=== PATIENT | male | born 1965 | race Caucasian/White ===

== ENCOUNTER 2023-03-29 17:49 | Emergency (ER) | payer OTHER, SELFPAY ==
[2023-03-29] VITALS (10 sets, daily range): BP systolic 115–141; BP diastolic 67–84; PULSE 73–80; RESP 16–18; TEMP 37.3; O2SAT 93–97; BMI 34.2
--- NOTE | 2023-03-29 17:56 | DI.RAD.S_ITS ---
PROCEDURE: XR HAND LT MIN 3V INDICATIONS: dog bite left hand TECHNIQUE: 3 views of the hand(s) acquired. COMPARISON: None. FINDINGS: Bones: No fractures or dislocations. Carpal bones are normally aligned. No suspicious bony lesions. Soft tissues: No suspicious soft tissue calcifications. IMPRESSION: No visualized acute fracture or dislocation. However, if clinical concern and/or pain persist, short interval imaging followup in 7-10 days is recommended, as occult injury cannot be definitively excluded. Dictated by: Kesha Pendleton M.D. on 03/29/2023 at 18:44 Approved by: Kesha Pendleton M.D. on 03/29/2023 at 18:45
--- NOTE | 2023-03-29 18:28 | ED_ITS ---
HPI - Animal Bite <Kinsey Rosario PA-C - Last Filed: 03/29/23 20:57> General Chief Complaint: Animal Bite Stated Complaint: Dog fight, right hand injury Time Seen by Provider: 03/29/23 18:05 Source: patient Mode of arrival: Ambulatory History of Present Illness HPI narrative: 57-year-old male presents to the ER with his with concern for laceration injury dog bite to his left hand. Patient states that he was in the backyard his 2 dogs were fighting and he was trying to separate them. One was upside down one was on top he reached in to try to turn 1 over and get them apart and his collie reached up and bit into his hand he states that her canines were lodged in the top of his hand when he pulled it away and it caused a big flap avulsion in the top of his hand. He states it is not particularly painful but notes it does bleed quite a bit when there isn't a bandage on it. States there was no significant bleeding or spurting blood when it happened. He feels he has been able to move things normally. Only previous injury to this hand was a table saw laceration that did not require surgery to the pad of his left thumb. He denies numbness or tingling or any other symptoms or injuries. Related Data Previous Rx's Medication Instructions Recorded amoxicillin 875 mg-potassium 1 tab PO Q12H dog bite prophylaxis 03/29/23 clavulanate 125 mg tablet 7 days #14 tabs Allergies Allergy/AdvReac Type Severity Reaction Status Date / Time No Known Drug Allergies Allergy Verified 03/29/23 17:50 Review of Systems <Kinsey Rosario PA-C - Last Filed: 03/29/23 20:57> Review of Systems Narrative: See HPI Patient History <Kinsey Rosario PA-C - Last Filed: 03/29/23 20:57> Social History Smoking Status: Never smoker Smoking Status: Never smoker alcohol intake frequency: holidays/special occasions only Substance Use Type: does not use Exam <Kinsey Rosario PA-C - Last Filed: 03/29/23 20:57> Narrative Exam Narrative: GENERAL: [57] year old patient appears stated age. Well-developed patient, in mild distress. HEAD: Atraumatic. Normocephalic. EYES: Pupils equal round and reactive. Extraocular motions intact. No scleral icterus. No injection or drainage. ENT: Nose without bleeding, purulent drainage. Throat without erythema, tonsillar hypertrophy or exudate. Airway patent. NECK: Trachea midline. CARDIOVASCULAR: Regular rate and rhythm without murmurs, gallops, or rubs. RESPIRATORY: Clear to auscultation. Breath sounds equal bilaterally. No wheezes, rales, or rhonchi. EXTREMITIES: There is a T-shaped laceration avulsion on the patient's left dorsum of the hand 4 cm x 1.5 cm. There is associated generalized swelling of the dorsum of the left hand. Bleeding is controlled with pressure dressing. 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 Sensation intact capillary refill less than 2 seconds all digits. There is a superficial open puncture wound present on the lateral aspect of the left index finger between the MCP and PIP. No other edema or joint tenderness noted. NEURO: AOx3. SKIN: No rash or erythema of visible areas Initial Vital Signs Initial Vital Signs: Vital Signs Temperature 99.1 F 03/29/23 17:50 Pulse Rate 73 03/29/23 17:50 Respiratory Rate 16 03/29/23 17:50 Blood Pressure 134/84 03/29/23 17:50 Pulse Oximetry 97 03/29/23 17:50 Oxygen Delivery Method Room Air 03/29/23 17:50 <Anselmo Ferguson DO - Last Filed: 03/29/23 21:04> Initial Vital Signs Initial Vital Signs: Vital Signs Temperature 99.1 F 03/29/23 17:50 Pulse Rate 73 03/29/23 17:50 Respiratory Rate 16 03/29/23 17:50 Blood Pressure 134/84 03/29/23 17:50 Pulse Oximetry 97 03/29/23 17:50 Oxygen Delivery Method Room Air 03/29/23 17:50 Procedures <Kinsey Rosario PA-C - Last Filed: 03/29/23 20:57> Laceration Repair Laceration 1: Time of procedure: 19:25 Site: hand Side (If applicable): left (Dorsum) Description: flap (T shaped 4cm long edge x 1.5 cm) Depth: involves muscle layer Amount of anesthesia used (mL): 4 Pre-repair: wound explored, irrigated extensively, deep structures intact and cleansed with chlorhexadine Skin layer closed with: nylon Skin layer suture size: 5-0 Number of sutures: 12 Technique: simple, interrupted Subcutaneous layer closed with: vicryl Subcutaneous layer suture size: 5-0 Number of sutures: 2 Technique: simple, interrupted Course <Kinsey Rosario PA-C - Last Filed: 03/29/23 20:57> Course Course Narrative: After numbing and washout requested Dr. Ferguson also examine the patient's wound. We confirmed that the extensor tendon of the middle finger is intact and moving normally it is visible at the base of the wound. Given persistent bleeding and deep wound we will be closing the wound even though it is from a dog bite. And will initiate antibiotics today in the emergency department. 1911 Orders Ordered: ED Orders 03/29/23 17:56 XR hand LT min 3V Stat Discontinued Medications Amoxicillin/Clavulanate Potassium (Amoxicillin/Clav 875/125 Mg) 1 tab PO NOW ONE Stop: 03/29/23 20:20 Last Admin: 03/29/23 20:24 Dose: 1 tab Documented By: NORRIS Diphtheria/Tetanus/Acell Pertussis (Tet,Diph,Pertuss(Acell),Vac/Pf 0.5 Ml Syringe) 0.5 ml IM .ONCE ONE Stop: 03/29/23 17:57 Last Admin: 03/29/23 18:30 Dose: 0.5 ml Documented By: YADIRA Lidocaine HCl (Lidocaine 2% Inj Mdv 20ml) 10 ml SUBCUT NOW ONE Stop: 03/29/23 18:28 Last Admin: 03/29/23 18:43 Dose: 10 ml Documented By: YADIRA Oxycodone/Acetaminophen (Oxycodone/Apap 5/325 Prepack) 1 bottle MISC SEEINSTR ONE Stop: 03/29/23 20:31 Last Admin: 03/29/23 20:34 Dose: 1 bottle Documented By: NORRIS Vital Signs Vital signs: Vital Signs - 8 hr 03/29/23 17:50 03/29/23 18:50 03/29/23 18:52 Temperature 99.1 F Pulse Rate 73 80 Respiratory Rate 16 Blood Pressure 134/84 130/69 Pulse Oximetry 97 93 Oxygen Delivery Method Room Air 03/29/23 18:52 03/29/23 19:00 03/29/23 19:00 Temperature Pulse Rate 80 77 Respiratory Rate Blood Pressure 115/67 Pulse Oximetry 93 95 Oxygen Delivery Method 03/29/23 19:15 03/29/23 19:15 03/29/23 19:30 Temperature Pulse Rate 78 Respiratory Rate Blood Pressure 128/67 141/75 H Pulse Oximetry 95 Oxygen Delivery Method 03/29/23 19:30 03/29/23 19:45 03/29/23 19:45 Temperature Pulse Rate 79 76 Respiratory Rate 18 Blood Pressure 131/77 Pulse Oximetry 95 95 Oxygen Delivery Method Room Air 03/29/23 20:00 03/29/23 20:00 03/29/23 20:15 Temperature Pulse Rate 79 74 Respiratory Rate Blood Pressure 128/75 Pulse Oximetry 95 93 Oxygen Delivery Method Room Air 03/29/23 20:15 03/29/23 20:30 03/29/23 20:30 Temperature Pulse Rate 73 Respiratory Rate Blood Pressure 131/76 134/79 Pulse Oximetry 95 Oxygen Delivery Method Room Air <Anselmo Ferguson DO - Last Filed: 03/29/23 21:04> Orders Ordered: ED Orders 03/29/23 17:56 XR hand LT min 3V Stat Discontinued Medications Amoxicillin/Clavulanate Potassium (Amoxicillin/Clav 875/125 Mg) 1 tab PO NOW ONE Stop: 03/29/23 20:20 Last Admin: 03/29/23 20:24 Dose: 1 tab Documented By: NORRIS Diphtheria/Tetanus/Acell Pertussis (Tet,Diph,Pertuss(Acell),Vac/Pf 0.5 Ml Syringe) 0.5 ml IM .ONCE ONE Stop: 03/29/23 17:57 Last Admin: 03/29/23 18:30 Dose: 0.5 ml Documented By: YADIRA Lidocaine HCl (Lidocaine 2% Inj Mdv 20ml) 10 ml SUBCUT NOW ONE Stop: 03/29/23 18:28 Last Admin: 03/29/23 18:43 Dose: 10 ml Documented By: YADIRA Oxycodone/Acetaminophen (Oxycodone/Apap 5/325 Prepack) 1 bottle MISC SEEINSTR ONE Stop: 03/29/23 20:31 Last Admin: 03/29/23 20:34 Dose: 1 bottle Documented By: NORRIS Vital Signs Vital signs: Vital Signs - 8 hr 03/29/23 17:50 03/29/23 18:50 03/29/23 18:52 Temperature 99.1 F Pulse Rate 73 80 Respiratory Rate 16 Blood Pressure 134/84 130/69 Pulse Oximetry 97 93 Oxygen Delivery Method Room Air 03/29/23 18:52 03/29/23 19:00 03/29/23 19:00 Temperature Pulse Rate 80 77 Respiratory Rate Blood Pressure 115/67 Pulse Oximetry 93 95 Oxygen Delivery Method 03/29/23 19:15 03/29/23 19:15 03/29/23 19:30 Temperature Pulse Rate 78 Respiratory Rate Blood Pressure 128/67 141/75 H Pulse Oximetry 95 Oxygen Delivery Method 03/29/23 19:30 03/29/23 19:45 03/29/23 19:45 Temperature Pulse Rate 79 76 Respiratory Rate 18 Blood Pressure 131/77 Pulse Oximetry 95 95 Oxygen Delivery Method Room Air 03/29/23 20:00 03/29/23 20:00 03/29/23 20:15 Temperature Pulse Rate 79 74 Respiratory Rate Blood Pressure 128/75 Pulse Oximetry 95 93 Oxygen Delivery Method Room Air 03/29/23 20:15 03/29/23 20:30 03/29/23 20:30 Temperature Pulse Rate 73 Respiratory Rate Blood Pressure 131/76 134/79 Pulse Oximetry 95 Oxygen Delivery Method Room Air MDM - Animal Bite <Kinsey Rosario PA-C - Last Filed: 03/29/23 20:57> Differential Diagnosis Differential diagnosis: Likely bite by animal, dog bite and other (Laceration) Medical Records Attestation: I reviewed the patient's medical records. Imaging Data Extremity x-ray #1: My Impression: Agree with Radiology interpretation Radiologist's Impression: [address] [address] XRay Report Signed Patient: Eriberto Ronquillo MR#: [id number] : 1965 Acct:[id number] Age/Sex: 57 / M Date of Service: 03/29/23 Loc: ED Accession Number: [id number] Procedure: XR hand LT min 3V Ordering Provider: Isis Vargas MD PROCEDURE: XR HAND LT MIN 3V INDICATIONS: dog bite left hand TECHNIQUE: 3 views of the hand(s) acquired. COMPARISON: None. FINDINGS: Bones: No fractures or dislocations. Carpal bones are normally aligned. No suspicious bony lesions. Soft tissues: No suspicious soft tissue calcifications. IMPRESSION: No visualized acute fracture or dislocation. However, if clinical concern and/or pain persist, short interval imaging followup in 7-10 days is recommended, as occult injury cannot be definitively excluded. Dictated by: Kesha Pendleton M.D. on 03/29/2023 at 18:44 Approved by: Kesha Pendleton M.D. on 03/29/2023 at 18:45 Treatment and disposition Shared decision making:: Shared decision-making was used with the patient and his regarding plan for suture repair and antibiotics MDM Narrative Medical decision making narrative: This is a 57-year-old male presents with concern for laceration to the dorsum of his left hand sustained by his own dog who is fully vaccinated. His 2 dogs were fighting they are both fully vaccinated and he attempted to separate them resulting in his laceration/avulsion. After washout attending physician examined the wound and we found no evidence of tendon damage, muscles intact and patient's function neuromotor sensory is intact. Wound repaired as above and procedures. Pressure dressing applied. Prepack of Percocet for pain for the next 24 hours as well as initial dose of Augmentin in the emergency department today before departing and prescription for 7 day course of Augmentin for prophylaxis against infection. Patient is advised to follow up closely with his primary care provider monitor for signs of infection. Return precautions provided, follow-up plan discussed, all questions answered. Discharge Plan Departure Patient Disposition: Home Clinical Impression: Dog bite Qualifiers: Encounter type: initial encounter Qualified Code(s): W54.0XXA - Bitten by dog, initial encounter Laceration of hand Qualifiers: Encounter type: initial encounter Foreign body presence: without foreign body Laterality: left Qualified Code(s): S61.412A - Laceration without foreign body of left hand, initial encounter Instructions: DI for Dog Bite Activity Restrictions/Additional Instructions: *You have been diagnosed with [ laceration from dog bite to hand] *What to do: *Please continue to take your regular medications as directed. [ 1] New medication prescriptions sent to your pharmacy: [Augmentin] [ ] New medication written as a paper prescription [ ] No new medications given *Please follow up with your primary care provider in 2-3 days, call for an appointment. Let them know you were seen in the Emergency Department and that we ask that you be seen in follow up. We will electronically transmit a record of today's note if your PCP is in our system. A prescription was sent into [facility] for Augmentin for a 7 day course. Please pick this up in the morning and continue taking it for the full course. We also provided a prepack from the ER with a few doses of stronger pain medicine for you to get you through the night given your significant laceration and wound with repair and pressure dressing placed. Please follow-up closely with your primary care provider. You can have your stitches removed in 8-10 days 12 at the most. Please keep the area clean, monitor for signs of infection including redness heat swelling increasing pain, drainage from the wound that is thick yellow or greenish appearing, new or worsening pain with moving her fingers or any other concerns--if these arise please make sure you get re-evaluated immediately however the prophylactic antibiotics he has been placed on should hopefully stave off infection. *If you do not have a primary care provider please contact the [facility] Resource line at [phone]. They will ask some questions about your medical history and help get you set up with a doctor in the community. *Return to Emergency Department if you should have any new, worsening or concerning symptoms, such as [fever greater than 101 F, shaking chills, worsening pain, persistent vomiting or other bothersome symptoms] . Prescriptions: New amoxicillin-pot clavulanate 875-125 mg tablet 1 tab PO Q12H 7 Days Qty: 14 0RF Stand Alone Forms: Patient Portal/API ED Sign-out <Anselmo Ferguson, - Last Filed: 03/29/23 21:04> Cosign ED Attending Rex Attestation: I did evaluate the patient with the APC. There does not to be any extensor tendon involvement. I agree with the above history and physical.
[2023-03-29] MEDS: TET,DIPH,PERTUSS(ACELL),VAC/PF 0.5 ML SYRINGE IM (18:30)
[2023-03-29] MEDS: LIDOCAINE 2% INJ MDV 20ML 10 ML SUBCUT (18:43)
[2023-03-29] MEDS: AMOXICILLIN/CLAV 875/125 MG 1 TAB PO (20:24)
[2023-03-29] MEDS: OXYCODONE/APAP 5/325 PREPACK 1 BOTTLE MISC (20:34)
--- NOTE | 2023-03-29 20:41 | PC.NURSE ---
Placed pressure dressing using telfa followed by 4x4 gauze. Wrapped coban around hand. Gave instruction to loosen coban if pt startes feeling numb, tingling and decreased cap refill, pt stated understanding.
== END 2023-03-29 20:44 | disposition home or self-care (01) ==
PROVIDERS: Emergency Provider Student in an Organized Health Care Education/Training Program
DX: S61.412A Laceration without foreign body of left hand, initial encounter (principal); S61.452A Open bite of left hand, initial encounter; W54.0XXA Bitten by dog, initial encounter; Z23 Encounter for immunization
CPT/HCPCS: 13132; 73130; 90471; 99283; 99284; 90715

== ENCOUNTER 2025-03-15 13:45 | Inpatient (IN) | payer OTHER, SELFPAY ==
[2025-03-15 14:08] VITALS: BP 122/67; PULSE 89; RESP 17; TEMP 36.8; O2SAT 95; BMI 32.5
--- NOTE | 2025-03-15 15:26 | ED.EXTPRO ---
HPI - Extremity Problem General Chief complaint: Extremity Problem,Nontraumatic Stated complaint: SWOLLEN RT KNEE, WIC ON MONDAY, FEVER Time Seen by Provider: 03/15/25 15:26 History of Present Illness HPI Narrative: Patient is a healthy 59-year-old male who presents today with right knee redness. Reports that about 1 week ago he was doing some work at home, about 4 days ago he noticed a small white area on his patellar tendon his squeezed it in the next day his right knee was read. He was seen evaluated at walk-in clinic 2 days ago he was started on Bactrim he has had 3 doses of Bactrim and continues to have fever. He is able to bear weight and to ambulate getting up out of a chair is difficult. He is not diabetic. Related Data Allergies Allergy/AdvReac Type Severity Reaction Status Date / Time No Known Drug Allergies Allergy Verified 03/15/25 14:08 Patient History Social History Smoking Status: Never smoker Smoking Status: Never smoker alcohol intake frequency: holidays/special occasions only Exam Initial Vital Signs Initial Vital Signs: Vital Signs Temperature 98.3 F 03/15/25 14:08 Pulse Rate 89 03/15/25 14:08 Respiratory Rate 17 03/15/25 14:08 Blood Pressure 122/67 03/15/25 14:08 Pulse Oximetry 95 03/15/25 14:08 Oxygen Delivery Method Room Air 03/15/25 14:08 GENERAL: Alert well-appearing 59-year-old male HEENT: Head atraumatic,EOMI, pupils reactive, face symmetric, moist mucous membranes CARDIOVASCULAR: Regular rate and rhythm without murmurs, rubs or gallops. RESPIRATORY: Breath sounds equal bilaterally, no wheezes rales or rhonchi. ABDOMEN: Soft, nontender. Normoactive bowel sounds all 4 quadrants. No guarding or rebound. EXTREMITIES: Normal range of motion, no clubbing or edema. Neurovascularly intact NEUROLOGICAL: Alert and oriented x4.Normal gait and speech. Cranial nerves II through XII grossly intact. SKIN: Right leg erythematous tender over patellar tendon no obvious abscess or fluctuation noncircumferential Procedures Bursa Procedure Side of body: right Site of Procedure: prepatellar bursa XRAY Obtained: none Antisepsis Used: Chlorhexidine Local Anesthetic: lidocaine 1% Amount of anesthesia used (mL): 5 Fluid obtained (mL): 3 Fluid Type: cloudy and purulent Patient Tolerated Procedure: Well and No complications Course Orders Ordered: ED Orders 03/15/25 15:12 CBC Auto Diff [Complete Blood Count AUTO DIFF] Stat CMP [Comprehensive Metabolic Panel] Stat CRP [C-Reactive Protein Quant] Stat ESR [Erythrocyte Sedimentation Rate] Stat Lactate (Lactic Acid) Stat 03/15/25 15:45 Blood Culture Stat 03/15/25 17:55 Body Fluid Culture Stat Cell Count w Diff Body Fluid Stat Discontinued Medications Hydromorphone HCl (Hydromorphone Hcl 0.5 Mg/0.5 Ml Syringe) 0.5 mg IV NOW ONE Stop: 03/15/25 17:57 Last Admin: 03/15/25 18:03 Dose: 0.5 mg Ceftriaxone Sodium 2,000 mg/ (Sodium Chloride) 100 mls @ 200 mls/hr IV NOW ONE Stop: 03/15/25 15:42 Last Infusion: 03/15/25 16:25 Dose: Infused Documented By: Admin: 03/15/25 15:49 Dose: 200 mls/hr Documented By: ISABELLA Vital Signs Vital signs: Vital Signs - 8 hr 03/15/25 14:08 Temperature 98.3 F Pulse Rate 89 Respiratory Rate 17 Blood Pressure 122/67 Pulse Oximetry 95 Oxygen Delivery Method Room Air MDM - Extremity (Nontraumatic) Lab Data 03/15/25 15:12 03/15/25 15:12 Labs: Lab Results 03/15/25 Range/Units 15:12 WBC 17.2 H (4.5-11.0) X10^3/uL RBC 3.72 L (4.5-5.9) X10^6/uL Hgb 12.6 L (13.5-17.5) g/dL Hct 37.9 L (41-53) % MCV 101.9 H (80-100) fL MCH 34.0 (26-34) PG MCHC 33.3 (30-36) % RDW 17.4 H (11.6-14.8) % Plt Count 212 (150-400) X10^3/uL Neut % (Auto) 82.0 H (50-75) % Lymph % (Auto) 10.3 L (25-40) % [place] % (Auto) 6.8 (3-14) % Eos % (Auto) 0.3 L (2-4) % Baso % (Auto) 0.6 (0-2) % Neut # (Auto) 75220 H (9240-4108) /uL Lymph # (Auto) 1800 (7133-1213) /uL [place] # (Auto) 1200 H (0-900) /uL Eos # (Auto) 100 (0-450) /uL Baso # (Auto) 100 (0-100) /uL ESR 81 H (0-15) MM/HR Sodium 134 L (137-145) mmol/L Potassium 4.4 (3.4-5.1) mmol/L Chloride 98 (98-107) mmol/L Carbon Dioxide 25 (22-32) mmol/L BUN 16 (9-20) mg/dL Creatinine 1.13 (0.66-1.25) mg/dL Estimated GFR > 60 (>60) mL/min BUN/Creatinine Ratio 14.2 (6-22) Glucose 180 H (70-99) mg/dL Lactate 1.1 (0.7-2.1) mmol/L Calcium 9.0 (8.4-10.2) mg/dL Total Bilirubin 1.3 (0.2-1.3) mg/dL AST 19 (17-59) IU/L ALT 24 (<50) IU/L Alkaline Phosphatase 69 (38-126) U/L C-Reactive Protein 29.7 H (<1.0) mg/dL Total Protein 8.3 H (6.3-8.2) g/dL Albumin 4.5 (3.5-5.0) g/dL Globulin 3.8 (1.7-4.1) g/dL Albumin/Globulin Ratio 1.2 (1.0-2.8) MDM Narrative Medical decision making narrative: [facility] CC: Right knee pain and redness Complicating co-morbidities: Healthy male Data collected from: and patient Medical records reviewed: Minimal records to review Differential considered: Prepatellar septic bursitis versus septic arthritis versus cellulitis Exam documented above, pertinent findings include: Prepatellar swelling and redness pain to touch able to move knee distal pedal pulse intact Lab Test results independently reviewed as above. Pertinent findings: CBC shows leukocytosis WBC of 17 CMP no electrolyte abnormality no TEJAL creatinine 1.1 glucose 180 Lactate 1 point ESR 81 CRP 29 point Imaging studies independently reviewed: None Consultations: 1800 Dr. Gregory orthopedics agrees to consultation keep NPO after midnight 1802 Dr. Hooks updated patient's symptoms orthopedic recommendation agrees to admission Treatments: I&D prepatellar space, Rocephin Dilaudid Re-evaluations: Patient is requiring more pain medicine Discussion: Patient is a healthy 59-year-old male presenting to day with ongoing right knee infection. This does seem to be pre patellar bursitis. He actually has a normal lactate but elevated WBC ESR and CRP. Fluid from bursa is sent and being cultured blood cultures pending. Discharge Plan Departure Patient Disposition: Admitted As Inpatient Clinical Impression: Septic prepatellar bursitis of right knee Admit Date/Time: 03/15/25 18:21 Admit Provider: Fareed Hooks V
[2025-03-15] MEDS: cefTRIAXone 2,000 MG in SODIUM CHLORIDE 0.9% 100 ML 200 MG IV (15:49)
[2025-03-15 15:50] LABS: Add Manual Diff / Slide Review NO; Hematocrit 37.9 % (41-53); Hemoglobin 12.6 g/dL (13.5-17.5); Lymphocytes Absolute Auto 1800 /uL (1100-4500); Mean Corpuscular HGB Conc 33.3 % (30-36); Mean Corpuscular Hemoglobin 34.0 PG (26-34); Mean Corpuscular Volume 101.9 fL (80-100); Platelet Count 212 X10^3/uL (150-400)
--- NOTE | 2025-03-15 15:51 | PC.NURSE ---
2nd blood cultures obtained
[2025-03-15 15:53] LABS: Lactate (Lactic Acid) 1.1 mmol/L (0.7-2.1)
[2025-03-15 15:56] LABS: Alanine Aminotransferase 24 IU/L (<50); Albumin 4.5 g/dL (3.5-5.0); Albumin Globulin Ratio 1.2 (1.0-2.8); Alkaline Phosphatase 69 U/L (38-126); Blood Urea Nitrogen 16 mg/dL (9-20); Calcium 9.0 mg/dL (8.4-10.2); Carbon Dioxide 25 mmol/L (22-32); Chloride 98 mmol/L (98-107); Estimated Glomerular Filt Rate > 60 mL/min (>60); Globulin 3.8 g/dL (1.7-4.1); Glucose 180 mg/dL (70-99); HEMOLYSIS < 15 (0-50); Potassium 4.4 mmol/L (3.4-5.1); Sodium 134 mmol/L (137-145); Total Protein 8.3 g/dL (6.3-8.2)
[2025-03-15 18:16] LABS: Body Fluid Tot Nucleated Cells 361409 /uL
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
[2025-03-15 18:40] LABS: Body Fluid Clotted? NO CLOTS PRESENT
[2025-03-15 19:05] VITALS: BP 145/88; PULSE 101; RESP 16; TEMP 37.7; O2SAT 95
[2025-03-15 19:14] VITALS: BMI 32.5
--- NOTE | 2025-03-15 20:23 | PM.CN.IH.1 ---
History of Present Illness Consult details Date Patient Seen: 03/15/25 Time Patient Seen: 20:23 Chief complaint: SWOLLEN RT KNEE, WIC ON MONDAY, FEVER Reason for consult: Right leg infection Narrative: Eriberto is a 59-year-old male who presents to the emergency room earlier today with complaints of worsening pain, redness, swelling of the right leg. He began having symptoms several days ago and was seen in an urgent care and started on some Bactrim. His symptoms have progressed following the initiation of antibiotic treatment. He presented to the emergency room earlier today and had a small area of fluctuance that was aspirated by the ER and produced some purulent material. Had extensive erythema of the leg and was admitted for IV antibiotics. He reports pain is limited to the leg. He is able to walk without significant pain in the knee itself. Meds Home Medications and Allergies Home Medications ?Medication ?Instructions ?Recorded ?Confirmed ?Type naproxen sodium 220 mg capsule 220 mg PO BID 03/15/25 03/15/25 History (Aleve) Allergies Allergy/AdvReac Type Severity Reaction Status Date / Time No Known Drug Allergies Allergy Verified 03/15/25 14:08 Review of Systems Review of Systems ROS: Yes All systems reviewed with the patient and are negative except as otherwise documented Musculoskeletal Musculoskeletal: Reports as per HPI Integumentary/Breasts Skin/Breast: Reports as per HPI Exam Vital Signs (past 8 hours): - 03/15/25 14:08 Temperature 98.3 F Pulse Rate 89 Respiratory Rate 17 Blood Pressure 122/67 Pulse Oximetry 95 Oxygen Delivery Method Room Air Oxygen Delivery Method Room Air Narrative Exam Narrative: Right lower extremity has extensive erythema extending from above the knee to the lower portion of the lower leg. I do not appreciate any substantial areas of fluctuance on exam at this time. There is evidence of a puncture from the aspiration just around the level of the patellar tendon laterally. He has full extension through about 45-50 degrees of flexion with minimal discomfort. The knee is without effusion. There is diffuse warmth of the leg in the area of the erythema. Distal motor and sensory exams are intact. Objective Labs 03/15/25 15:12 03/15/25 15:12 Labs: Laboratory Results - last 24 hr 03/15/25 03/15/25 15:12 17:48 WBC 17.2 H RBC 3.72 L Hgb 12.6 L Hct 37.9 L MCV 101.9 H MCH 34.0 MCHC 33.3 RDW 17.4 H Plt Count 212 Neut % (Auto) 82.0 H Lymph % (Auto) 10.3 L [place] % (Auto) 6.8 Eos % (Auto) 0.3 L Baso % (Auto) 0.6 Neut # (Auto) 81134 H Lymph # (Auto) 1800 [place] # (Auto) 1200 H Eos # (Auto) 100 Baso # (Auto) 100 ESR 81 H Sodium 134 L Potassium 4.4 Chloride 98 Carbon Dioxide 25 BUN 16 Creatinine 1.13 Estimated GFR > 60 BUN/Creatinine Ratio 14.2 Glucose 180 H Lactate 1.1 Calcium 9.0 Total Bilirubin 1.3 AST 19 ALT 24 Alkaline Phosphatase 69 C-Reactive Protein 29.7 H Total Protein 8.3 H Albumin 4.5 Globulin 3.8 Albumin/Globulin Ratio 1.2 Fluid Color [place] Fluid Appearance Turbid Fluid RBC 73882 Fld Tot Nucleated Cell [id number] Body Fluid Clot No clots present PFSH Social History household members: spouse Tobacco & Substance Use Smoking Status: Never smoker alcohol intake: current Assessment & Plan Assessment & Plan narrative: Right lower extremity cellulitis with focal area of possible abscess already aspirated. At this time, I do not appreciate a clinical picture of any significant septic arthritis. Additionally the area of fluctuance that was noted by the emergency room staff and aspirated is no longer appreciated. Given the clinical picture, I suspect that he should do well with continued IV antibiotic treatment with broad-spectrum coverage. I do not see a surgical indication at this time. I will continue to follow his progress while in the hospital. Time-Based Coding :: [TOTAL MINUTES] spent with patient and on the chart (including review of chart, obtaining history, exam, reviewing outside data, placing orders, documenting exam and treatment plan, and counseling patient) on [DATE]. PROFEE Charge Codes Inpatient or Observation consultation: 37120
[2025-03-15 20:27] LABS: Eosinophils Body Fluid 3 %; Lymphocytes Body Fluid 9 %; MESO/MACRO/MONO Body Fluid 13 %; Neutrophils Body Fluid 75 %
[2025-03-15] MEDS: INSULIN LISPRO 100 UNIT/ML 3ML VIAL SUBCUT (21:54)
[2025-03-16] VITALS (7 sets, daily range): BP systolic 114–132; BP diastolic 67–78; PULSE 89–105; RESP 17–20; TEMP 36.4–38.4; O2SAT 95–99
[2025-03-16] MEDS: DEXTROSE 5%-0.45% NS 1,000 ML 100 ML IV ×2 (00:37→10:36)
[2025-03-16] MEDS: ACETAMINOPHEN 325 MG TABLET 650 MG PO ×2 (01:26→21:24)
--- NOTE | 2025-03-16 01:33 | PC.NURSE ---
pt seen in no distress. iv restart to r hand patent and intact. npo after midnight with iv fluids as ordered per pump. pain controlled well with iv dilaudid. tolerated well by pt. spike of temp to 102.3 oral. po tylenol with sips of water at 01:30 a.m. with good results. pt comfortable with fever. able to ambulate to bathroom to void without problems. r knee red, swollen, localized discomfort 2/1to10 scale most of the time. vss. bp wnl. pt states he was gardening in a bilateral kneeling position on the ground and pavers. skin integrity intact. unsure how he got the infection.
--- NOTE | 2025-03-16 03:15 | PC.NURSE ---
Addendum entered by Loreta Adkins RN 03/16/25 03:56: consulted with coordinator. 2units lispro given as ordered. will monitor. pt resting comfortably. adequate pain controll achieved with iv dilaudid. skin warm and dry. fever down. message to hospitalist about fever noted. pt remains comfortable. vss. bp wnl. pt states has been having nocturnal fevers. Original Note: glucometer 256 mg/dl fingerstik. pt npo. insulin lispro subcu held per protocol orders. will monitor.
[2025-03-16] MEDS: INSULIN LISPRO 100 UNIT/ML 3ML VIAL SUBCUT ×4 (03:49→20:57)
--- NOTE | 2025-03-16 05:07 | PC.NURSE ---
hospitalist Dr. rodriguez aware of temperature spike. pt afebrile and with stable vs. (message via webToolWire). will monitor. consulted with pharmacy. ceftriaxome 2 grams iv given in er good for 24 hours. will report to oncoming shift and have them follow.
[2025-03-16 06:50] LABS: Add Manual Diff / Slide Review NO; Hematocrit 34.6 % (41-53); Hemoglobin 11.7 g/dL (13.5-17.5); Lymphocytes Absolute Auto 1200 /uL (1100-4500); Mean Corpuscular HGB Conc 33.8 % (30-36); Mean Corpuscular Hemoglobin 34.2 PG (26-34); Mean Corpuscular Volume 101.1 fL (80-100); Platelet Count 182 X10^3/uL (150-400)
[2025-03-16 07:10] LABS: Hemoglobin A1C% w Est Avg Glu 7.9 % (4.0-6.0)
[2025-03-16 08:06] LABS: Vitamin B12 Reflex MMA if <400 891 pg/mL (239-931)
--- NOTE | 2025-03-16 08:49 | P.PN_ITS ---
Subjective Subjective Date Patient Seen: 03/16/25 Time Patient Seen: 08:49 Interval history: Hospital day 2 for right lower extremity cellulitis with focal abscess over the patellar tendon region. Patient reports some slight improvement in discomfort. He has no new complaints. Exam Vital Signs (past 8 hours): - 03/16/25 02:25 03/16/25 02:35 03/16/25 04:38 Temperature 99.3 F 99.3 F 98.6 F Pulse Rate 91 H Respiratory Rate 17 Blood Pressure 114/68 Pulse Oximetry 99 Oxygen Flow Rate 0 03/16/25 08:36 Temperature 99.8 F H Pulse Rate 94 H Respiratory Rate 20 Blood Pressure 125/78 Pulse Oximetry 96 Oxygen Flow Rate Oxygen Delivery Method Room Air Oxygen Flow Rate 0 Narrative Exam Narrative: Right lower extremity remains erythematous from both of the knee to 2/3 down the lower leg. There is some slight diminished warmth to the area compared to yesterday. There is a small pustule that has some expressible pus coming from it today. I do not appreciate a larger fluid collection deep to that. Range of motion is from 0 through about 45? without significant pain. Distal motor and sensory exams are intact. Objective Labs 03/16/25 06:30 03/15/25 15:12 Labs: Laboratory Results - last 24 hr 03/15/25 03/15/25 03/15/25 15:12 17:48 21:37 WBC 17.2 H RBC 3.72 L Hgb 12.6 L Hct 37.9 L MCV 101.9 H MCH 34.0 MCHC 33.3 RDW 17.4 H Plt Count 212 Neut % (Auto) 82.0 H Lymph % (Auto) 10.3 L [place] % (Auto) 6.8 Eos % (Auto) 0.3 L Baso % (Auto) 0.6 Neut # (Auto) 61425 H Lymph # (Auto) 1800 [place] # (Auto) 1200 H Eos # (Auto) 100 Baso # (Auto) 100 ESR 81 H Sodium 134 L Potassium 4.4 Chloride 98 Carbon Dioxide 25 BUN 16 Creatinine 1.13 Estimated GFR > 60 BUN/Creatinine Ratio 14.2 Glucose 180 H POC Whole Bld Glucose 275 H Hemoglobin A1c Lactate 1.1 Calcium 9.0 Total Bilirubin 1.3 AST 19 ALT 24 Alkaline Phosphatase 69 C-Reactive Protein 29.7 H Total Protein 8.3 H Albumin 4.5 Globulin 3.8 Albumin/Globulin Ratio 1.2 Vitamin B12 Fluid Color [place] Fluid Appearance Turbid Fluid RBC 95018 Fld Tot Nucleated Cell 255836 Fluid Neutrophils % 75 Fluid Lymphocytes % 9 Fluid Eosinophils % 3 Fluid Meso/Macro/[place] % 13 Body Fluid Clot No clots present 03/16/25 03/16/25 03:02 06:30 WBC 14.3 H RBC 3.42 L Hgb 11.7 L Hct 34.6 L MCV 101.1 H MCH 34.2 H MCHC 33.8 RDW 16.9 H Plt Count 182 Neut % (Auto) 82.2 H Lymph % (Auto) 8.4 L [place] % (Auto) 7.9 Eos % (Auto) 0.5 L Baso % (Auto) 1.0 Neut # (Auto) 56578 H Lymph # (Auto) 1200 [place] # (Auto) 1100 H Eos # (Auto) 100 Baso # (Auto) 100 ESR Sodium Potassium Chloride Carbon Dioxide BUN Creatinine Estimated GFR BUN/Creatinine Ratio Glucose POC Whole Bld Glucose 256 H Hemoglobin A1c 7.9 H Lactate Calcium Total Bilirubin AST ALT Alkaline Phosphatase C-Reactive Protein Total Protein Albumin Globulin Albumin/Globulin Ratio Vitamin B12 891 Fluid Color Fluid Appearance Fluid RBC Fld Tot Nucleated Cell Fluid Neutrophils % Fluid Lymphocytes % Fluid Eosinophils % Fluid Meso/Macro/[place] % Body Fluid Clot [facility] Social History household members: spouse Smoking Status: Never smoker alcohol intake: current Assessment & Plan Assessment & Plan narrative: Hospital day 2. For right lower extremity cellulitis with small abscess. Patient is demonstrating some clinical improvement as well as improving white count. I currently do not see any indications for surgery. Recommend continued antibiotics and observation. We will continue to follow. Time-Based Coding :: [TOTAL MINUTES] spent with patient and on the chart (including review of chart, obtaining history, exam, reviewing outside data, placing orders, documenting exam and treatment plan, and counseling patient) on [DATE]. PROFEE Property Loss Insurance Claim Adjuster Document charge(s): Yes Charge Codes Subsequent inpatient/observation care: [id number]
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
[2025-03-16] MEDS: INSULIN GLARGINE 100 UNIT/ML 3ML PEN 10 UNIT SUBCUT (13:36)
[2025-03-16] MEDS: VANCOMYCIN 1,250 MG/250 ML PIGGYBACK 166.667 MG IV (14:01)
[2025-03-16] MEDS: cefTRIAXone 2,000 MG in SODIUM CHLORIDE 0.9% 100 ML 200 MG IV (16:19)
[2025-03-16] MEDS: INSULIN LISPRO 100 UNIT/ML 3ML VIAL 7 UNIT SUBCUT (17:29)
[2025-03-16] MEDS: INSULIN GLARGINE 100 UNIT/ML 3ML PEN 20 UNIT SUBCUT (20:58)
[2025-03-17] VITALS (14 sets, daily range): BP systolic 107–142; BP diastolic 64–87; PULSE 68–93; RESP 12–20; TEMP 35.9–38; O2SAT 94–98
--- NOTE | 2025-03-17 00:48 | PC.NURSE ---
right lower leg with dissipating erythema. hurts more to bear weight per pt. feels leg is improving. febrile at noc to low grade 99 and 100's. bp stable. mentating well. skin warm and dry and pink. on vancomycin iv per pt and it makes him feel like he is improving as his r leg doesn't feel so warm. will advise diabetic teaching in am. insulin as ordered. pt eating well. pain controlled by po tylenol and dilaudid iv. see mar. negative homans.
[2025-03-17] MEDS: VANCOMYCIN 1,250 MG/250 ML PIGGYBACK 166.667 MG IV (01:55)
[2025-03-17] MEDS: INSULIN LISPRO 100 UNIT/ML 3ML VIAL SUBCUT ×3 (08:50→21:06)
[2025-03-17] MEDS: INSULIN LISPRO 100 UNIT/ML 3ML VIAL 7 UNIT SUBCUT (08:51)
--- NOTE | 2025-03-17 09:25 | PM.PN.IH.1 ---
Subjective Subjective Date Patient Seen: 03/17/25 Time Patient Seen: 09:25 Interval history: Hospital day 3. Patient reports some continued pain in the knee but is able to ambulate with minimal discomfort in the knee itself. Exam Vital Signs (past 8 hours): - 03/17/25 04:19 Temperature 99.7 F H Pulse Rate 74 Respiratory Rate 16 Blood Pressure 125/74 Pulse Oximetry 98 Oxygen Flow Rate 0 Oxygen Delivery Method Room Air Oxygen Flow Rate 0 Narrative Exam Narrative: He continues to demonstrate erythema over the anterior part of the leg from above the knee to about 2/[address] down the leg although the erythema seems to be slightly regressed but is deeper in color around the patellar tendon region. I now appreciate an area of fluid collection in the prepatellar tendon bursal region. He has a developing bulla over top of this region as well. Distal motor and sensory exams are intact. Objective Labs 03/16/25 06:30 03/15/25 15:12 Labs: Laboratory Results - last 24 hr 03/16/25 03/16/25 03/16/25 11:09 16:52 20:05 POC Whole Bld Glucose 250 H 227 H 220 H 03/17/25 08:15 POC Whole Bld Glucose 173 H PFSH Social History household members: spouse Smoking Status: Never smoker alcohol intake: current Assessment & Plan Assessment & Plan narrative: Patient is demonstrating recurrence of his pre patellar tendon fluid collection. We discussed options and I suggest that we attempt aspiration. He was agreeable with this plan. Verbal consent was obtained. The skin was cleaned with ChloraPrep and then an 18 gauge needle was inserted into the area of fluctuance. Approximately 15 mL of benjy purulent light brown fluid was aspirated. Knee was then dressed with sterile gauze and Melo wrap. Patient tolerated well. Based on the results of the aspiration, I am concerned that this may represent a larger fluid collection that I can not fully aspirate. I think it would be best for us to consider surgical incision and drainage to fully decompress any fluid collection. He is agreeable with this plan. Risks benefits were discussed. These included, but were not limited to: Bleeding, infection, drug reactions, neurovascular injury, incomplete pain relief, stiffness, arthritis, recurrent infection, and . Patient voiced understanding acceptance of the risks. We will work on getting him on the OR schedule later this afternoon. Will keep him NPO at this time. Time-Based Coding :: [TOTAL MINUTES] spent with patient and on the chart (including review of chart, obtaining history, exam, reviewing outside data, placing orders, documenting exam and treatment plan, and counseling patient) on [DATE]. PROFEE Deck Lid Fitter Document charge(s): Yes Charge Codes Subsequent inpatient/observation care: [id number]
[2025-03-17] MEDS: VANCOMYCIN 1,000 MG/200 ML PIGGYBACK 200 MG IV (10:32)
[2025-03-17] MEDS: ACETAMINOPHEN 325 MG TABLET 650 MG PO (10:46)
--- NOTE | 2025-03-17 11:25 | DIET.CONS ---
Dietary Consultation Note Admission Date: 03/17/2025 10:54 Assessment: 59 y M presenting with swollen knee, headed to OR later today. Dietitian consulted for new onset DM. Pt reports hx of elevated glucose levels but reports this was an elevated FBG after he drank sugary coffee. Has recently been working on a higher protein lower carb diet, but compromises with his and does a moderate carb diet instead. Typically does 2 meals per day (e.g. wrap or leftovers and dinner homemade w/ starch veg protein, snacks like popcorn/ham slices) Reports has a BG meter at home and he occasionally checks his BG and it is normal. Pulls out a chart he has been following from [employer] his daughter gave to him. Ht: 187.96 cm Wt: 115.212 kg BMI: 32.5 UBW: - Last BM: 03/15/25 (03/15/25 19:14) MNA: 14 Giovany Score: 21 Diet: 03/17/25 09:19 NPO Diet Diet Modifications: NPO Type: NPO NOW for Procedure Nutrition Percent Meal Consumed 50% 03/16/25 18:00 Percent Meal Consumed 100% 03/16/25 13:27 Percent Meal Consumed pt npo @12 03/16/25 06:44 Labs: RBC 3.42 X10^6/uL (4.5-5.9) L 03/16/25 06:30 Hgb 11.7 g/dL (13.5-17.5) L 03/16/25 06:30 Hct 34.6 % (41-53) L 03/16/25 06:30 Creatinine 1.13 mg/dL (0.66-1.25) 03/15/25 15:12 Hemoglobin A1c 7.9 % (4.0-6.0) H 03/16/25 06:30 Lactate 1.1 mmol/L (0.7-2.1) 03/15/25 15:12 Nutrition Diagnosis: Altered nutrition related lab values r/t endocrine dysfunction/potentially higher CHO diet aeb 7.9% A1c Interventions: discussed and provided handouts on the following: -Plate Method, impact of macronutrients on blood sugar, meal timing, carbohydrate counting, pairing macronutrients and spreading out carbohydrates for better blood glucose management -Recommended servings for carbohydrates at meals and snacks -BG numbers for individuals with diabetes and A1c range to aim for from vidal -Provided # for OP DM scheduling -Discussed saturated fat content and monitoring if doing higher protein/lower carb diet EER: 45-60 g CHO at meals, 15-30 g CH) at snacks Monitoring/Evaluations: BG Electronically Signed by: Ginger Sifuentes 03/17/25 11:[address] [address]
[2025-03-17] MEDS: AMPICILLIN/SULBACTAM 3 GM 3 GM in SODIUM CHLORIDE 0.9% 100 ML IV ×3 (12:18→23:13)
--- NOTE | 2025-03-17 13:20 | PC.NURSE ---
Addendum entered by Tracie Zambrano RN 03/17/25 19:32: Patient is back from surgery. He has iodoform packing to r.knee packed, with gauze and romeo wrap. Visiting with family. He denies pain and is comfortable. Original Note: Dr. stanley see patient today and aspirated 10cc of brownish colored pus in syringe. Patient is now npo as he is going to go to surgery for i/d to clean r.knee wound out. He was given iv dilaudid x1, and tylenol for headache pain. Patient also put on different oral and iv antibiotics. He will be going to surgery later this afternoon.
--- NOTE | 2025-03-17 14:56 | CM.DANOTE ---
Patient is a 59 yo male who was admitted OBS Status on 03/15/25 and switched to INPT Status on 03/17 after failing outpt tx Septic Bursitis. Pt has [facility] primary, [facility] secondary, and [facility] for insurance and no established PCP. EMR was reviewed. Per MD, pt failed outpt abx for bursitis and admitted for IV abx and was not improving and now getting I&D today and adjusting his IV abx coverage. SW met bedside with pt and explained role and he confirms he lives at home in [place] with his and is active and independent at baseline, does not use DME for mobility, and drives. 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 Pt has a hx of bursitis and has had surgical intervention before so anticipates similar recovery. Pt may need Medical Excuse for Work letter, he will contact his employer to confirm if needed at d/c. Pt does not have PCP at this time, but has been established at [facility] but his provider retired and he states he has just bounced between whatever provider was available. Pt requests assist with getting established with one Provider at [facility] again. SW called [facility] and they confirm he is in their system and updated them on pt's need to have f/u appointment post discharge and establish with provider again. They confirm they will call pt to get him on their schedule. Plan: SW to follow for I&D this afternoon and confirm po vs IV Abx at discharge. Spouse plans to provide transport at d/c. KENDY Martinez Discharge Planning/Care Management CM Discharge Assessment Start: 03/15/25 19:14 Freq: Status: Active Protocol: Document 03/17/25 14:15 BF (Rec: 03/17/25 14:19 BF [id number]) Discharge Planning Assessment Assigned Discharge KENDY Olivia Sde Provider none Insurance [employer] DPOA/Assigned informally spouse Designee Name Contact Information [phone] Advance Directives? No Advance Directives No on File History Provided By Patient,Medical Record Has Patient been No admitted in last 30 days? Prior Living House Arrangements Household Members spouse Type of Drives own vehicle transporation used prior to admit Independent with ADL Yes 's Is patient alert and Yes oriented? Caregiver for No Another Barriers to No Discharge Discharge Plan Home Transportation spouse Arrangement Additional Comment Follow for possible outpt f/u with wound care Whiteboard Updated Yes in Patient Room with name and ext. # of Corporate Giving Manager Review Status In Process Please Provide Date 03/17/25 Initial DC Assessment Was Performed Next Review Type Continued Stay Review Document 03/17/25 14:55 BF (Rec: 03/17/25 14:56 BF [id number]) Discharge Planning Assessment Assigned Discharge KENDY Olivia Sde Provider none Insurance [employer] DP/Assigned informally spouse Designee Name Contact Information [phone] Advance Directives? No Advance Directives No on File History Provided By Patient,Medical Record Has Patient been No admitted in last 30 days? Prior Living House Arrangements Household Members spouse Type of Drives own vehicle transporation used prior to admit Independent with ADL Yes 's Is patient alert and Yes oriented? Caregiver for No Another Barriers to No Discharge Discharge Plan Home Transportation spouse Arrangement Additional Comment Follow for possible outpt f/u with wound care Whiteboard Updated Yes in Patient Room with name and ext. # of Corporate Giving Manager Review Status In Process Please Provide Date 03/17/25 Initial DC Assessment Was Performed Next Review Type Continued Stay Review
[2025-03-17] MEDS: LACTATED RINGERS 1,000 ML 100 ML IV (16:30)
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
--- NOTE | 2025-03-17 16:41 | SUR.OPER ---
Supine on padded OR bed, head on pillow, arms secured on padded arm boards at <90 degrees abduction, legs uncrossed, safety belt at abdomen, tape over blanket over left lower leg.
[2025-03-17] MEDS: ACETAMINOPHEN IV 1,000 MG/100 ML VIAL 400 MG IV (16:46)
--- NOTE | 2025-03-17 16:49 | SUR.OPER ---
5 yds x 1/2 iodoform packing in right knee
--- NOTE | 2025-03-17 17:07 | PM.OP.1 ---
Operative Date/Time/Diagnoses Date of procedure: 03/17/25 Time of procedure: 17:07 Pre-op diagnosis: Prepatellar septic bursitis of the right knee Post-op diagnosis: same Procedure & Clinicians Procedure: Incision drainage of prepatellar bursa right knee (CPT 23914) Same procedure(s) as scheduled: Yes Indications: Septic prepatellar bursitis of the right knee Surgeon: Denis Gregory Assisted?: No Anesthesia Type: General Operative Notes Findings: Approximately 40 mL of benjy purulent material was evacuated from the prepatellar bursa Closure Type: not applicable Specimen(s): none sent Applied: other (15 yd of iodoform gauze packed into wound) Estimated Blood Loss (mL): 20 Blood products transfused: none Tourniquet time (min): 0 Procedure in detail: Patient was diagnosed with septic prepatellar bursitis of the right knee after developing a fluid collection while on antibiotics for cellulitis. Options were discussed and it was recommended that we do a formal incision drainage. He was in agreement with this plan. Appropriate risks were discussed previously including, but not limited to: Bleeding, infection, drug reactions, neurovascular injury, incomplete pain relief, stiffness, recurrent infection, and . Patient was seen in the holding area where the surgical site was marked. He was then taken to the operating room and placed on the operating table in supine position. General anesthesia was induced in the airway was secured. A nonsterile tourniquet was placed around the proximal right thigh. The right lower extremity was then prepped and draped out in the usual sterile fashion. A midline incision was marked over the patellar tendon at the area of fluctuance. Skin was then sharply incised with a scalpel. Metzenbaum scissors were then used to penetrate through the subcutaneous tissues into the abscess with immediate production of benjy purulent material. This was expressed from the surrounding areas. Blunt finger dissection was used to probe the extent of the abscess and break open loculated extensions which extended up over the patella and down the medial and lateral sides of the proximal tibia. The extent of the abscess was fully developed and all the purulent material was evacuated. 3 L of saline was then irrigated through the wound using cysto tubing under gravity. Once the wound was thoroughly irrigated, the the abscess was packed with a total of 15 yd of half-inch iodoform gauze packing to help keep the space open. A single 3-0 nylon suture was placed in the proximal end of the incision to partially close this. The surgical site was then dressed with a combination of Xeroform, 4x4s, ABDs, and an Melo wrap. General anesthesia was reversed successfully without complication patient was taken to the recovery room in stable condition. Cultures were not taken during the case as he already had an aspirate from the emergency room which was growing out Staphylococcus aureus. Complications: none Post-operative Condition: stable Disposition: PACU Plan for aftercare: We will continue on antibiotics and begin slowly removing packing over the next several days.
[2025-03-17] MEDS: INSULIN LISPRO 100 UNIT/ML 3ML VIAL 8 UNIT SUBCUT (18:25)
[2025-03-17] MEDS: LACTATED RINGERS 1,000 ML 50 ML IV ×2 (18:30→19:16)
[2025-03-17] MEDS: INSULIN GLARGINE 100 UNIT/ML 3ML PEN 25 UNIT SUBCUT (21:06)
[2025-03-18] MEDS: AMPICILLIN/SULBACTAM 3 GM 3 GM in SODIUM CHLORIDE 0.9% 100 ML IV (05:50)
--- NOTE | 2025-03-18 06:09 | PM.PN.IH.1 ---
Subjective Subjective Date Patient Seen: 03/18/25 Time Patient Seen: 06:09 Interval history: Postop day 1. From incision drainage of prepatellar septic bursitis of the right knee. He is doing well. Pain is nominal. Has no new complaints. Exam Vital Signs (past 8 hours): - 03/17/25 23:25 Temperature 96.6 F L Pulse Rate 74 Respiratory Rate 16 Blood Pressure 116/76 Pulse Oximetry 94 Oxygen Delivery Method Room Air Oxygen Flow Rate 0 Narrative Exam Narrative: Right lower extremity dressing is clean, dry, intact. He continues to have diffuse swelling of the right lower extremity. He continues to have diffuse erythema of the right lower extremity. Range of motion is limited from after the surgery. Distal motor and sensory exams are intact. Objective Labs 03/16/25 06:30 03/15/25 15:12 Labs: Laboratory Results - last 24 hr 03/17/25 03/17/25 03/17/25 08:15 12:05 15:34 POC Whole Bld Glucose 173 H 134 H 133 H 03/17/25 03/17/25 17:56 19:57 POC Whole Bld Glucose 183 H 214 H PFSH Social History household members: spouse Smoking Status: Never smoker alcohol intake: current Assessment & Plan Assessment & Plan narrative: Postop day 1 from incision drainage of right prepatellar septic bursitis, progressing as anticipated. Cultures from the emergency room aspirate show methicillin sensitive staph aureus. Recommend continued antibiotics covering this pathogen. The wound was packed with iodoform gauze. Recommend begin removing about 3-4 ft of gauze a day beginning tomorrow. Total of 15 yd was packed in the wound. Continue to monitor exam, white count, and CRP for evidence of improvement. Time-Based Coding :: [TOTAL MINUTES] spent with patient and on the chart (including review of chart, obtaining history, exam, reviewing outside data, placing orders, documenting exam and treatment plan, and counseling patient) on [DATE]. PROFEE Financial Assistant Document charge(s): Yes
[2025-03-18 06:35] LABS: Add Manual Diff / Slide Review NO; Hematocrit 33.7 % (41-53); Hemoglobin 11.5 g/dL (13.5-17.5); Lymphocytes Absolute Auto 1100 /uL (1100-4500); Mean Corpuscular HGB Conc 34.0 % (30-36); Mean Corpuscular Hemoglobin 34.6 PG (26-34); Mean Corpuscular Volume 101.8 fL (80-100); Platelet Count 235 X10^3/uL (150-400)
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
[2025-03-18] MEDS: INSULIN LISPRO 100 UNIT/ML 3ML VIAL SUBCUT ×2 (08:46→12:00)
[2025-03-18] MEDS: INSULIN LISPRO 100 UNIT/ML 3ML VIAL 8 UNIT SUBCUT ×3 (08:50→17:05)
--- NOTE | 2025-03-18 10:28 | CM.DPNOTE ---
DCP Continued: Reviewed EMR and team rounds for pt?s medical status. Per hospitalist, pt will start new IV abx and will need to remain inpatient until Monday, 03/21 at the least. Ortho is consulting. No discharge needs identified. Plan: Anticipating discharge home with spouse on Monday, 03/21 or when medically cleared. CM Team will continue to follow for coordination of discharge plans. AIDA Zhou
[2025-03-18] MEDS: ACETAMINOPHEN 325 MG TABLET 650 MG PO (11:55)
[2025-03-18] MEDS: NAFCILLIN 2 GM in SODIUM CHLORIDE 0.9% 100 ML IV ×3 (12:39→20:40)
[2025-03-18] MEDS: LACTATED RINGERS 1,000 ML 50 ML IV (16:12)
[2025-03-18 20:00] VITALS: BP 119/68; PULSE 82; RESP 18; TEMP 36.9; O2SAT 94
[2025-03-18] MEDS: ASPIRIN EC 81 MG TABLET PO (20:40)
[2025-03-18] MEDS: INSULIN GLARGINE 100 UNIT/ML 3ML PEN 28 UNIT SUBCUT (20:41)
[2025-03-19] VITALS (13 sets, daily range): BP systolic 118–138; BP diastolic 56–82; PULSE 56–91; RESP 14–19; TEMP 35.3–37.1; O2SAT 90–98
[2025-03-19] MEDS: NAFCILLIN 2 GM in SODIUM CHLORIDE 0.9% 100 ML IV ×6 (00:33→20:06)
[2025-03-19 06:02] LABS: Add Manual Diff / Slide Review NO; Hematocrit 33.3 % (41-53); Hemoglobin 11.2 g/dL (13.5-17.5); Lymphocytes Absolute Auto 1200 /uL (1100-4500); Mean Corpuscular HGB Conc 33.7 % (30-36); Mean Corpuscular Hemoglobin 34.1 PG (26-34); Mean Corpuscular Volume 101.0 fL (80-100); Platelet Count 258 X10^3/uL (150-400)
[2025-03-19] MEDS: ASPIRIN EC 81 MG TABLET PO ×2 (08:54→20:06)
[2025-03-19] MEDS: ACETAMINOPHEN 325 MG TABLET 650 MG PO ×2 (08:54→16:46)
[2025-03-19] MEDS: INSULIN LISPRO 100 UNIT/ML 3ML VIAL SUBCUT ×2 (08:57→16:55)
--- NOTE | 2025-03-19 11:06 | PM.PNPO.1 ---
Exam Vital Signs (past 8 hours): Oxygen Delivery Method Room Air Oxygen Flow Rate 0 Objective Labs 03/19/25 05:31 03/15/25 15:12 Labs: Laboratory Results - last 24 hr 03/18/25 03/18/25 03/18/25 12:03 16:17 20:40 WBC RBC Hgb Hct MCV MCH MCHC RDW Plt Count Neut % (Auto) Lymph % (Auto) [place] % (Auto) Eos % (Auto) Baso % (Auto) Neut # (Auto) Lymph # (Auto) [place] # (Auto) Eos # (Auto) Baso # (Auto) POC Whole Bld Glucose 157 H 109 H 117 H C-Reactive Protein 03/19/25 03/19/25 03/19/25 05:31 07:26 10:55 WBC 8.9 RBC 3.30 L Hgb 11.2 L Hct 33.3 L MCV 101.0 H MCH 34.1 H MCHC 33.7 RDW 17.1 H Plt Count 258 Neut % (Auto) 73.7 Lymph % (Auto) 13.5 L [place] % (Auto) 9.5 Eos % (Auto) 2.4 Baso % (Auto) 0.9 Neut # (Auto) 6500 Lymph # (Auto) 1200 [place] # (Auto) 800 Eos # (Auto) 200 Baso # (Auto) 100 POC Whole Bld Glucose 157 H 146 H C-Reactive Protein 14.6 H PFSH Social History household members: spouse Smoking Status: Never smoker alcohol intake: current Assessment & Plan Post-op Postoperative Procedures: Procedures Operation Date: 03/17/25 17:30 Actual Procedure Side Surgeon p Incision and Drainage Knee Right Denis Gregory MD Operation Date: 03/19/25 12:45 <No data on this case meets the specified criteria> Postoperative plan narrative: ID: [id number] yo M s/p I&D of the right knee prepatellar bursitis on 03/19/25 S: Pain controlled with pain medications. Denies F/C/NS/CP/SOB. Tolerating PO. Reports that the knee is feeling slightly better. O: Mild erythema from the knee down the tibia. He reports that this is improved from preoperatively. Tenderness to palpation about the erythema and about the knee. No expressible purulence initially. However when I pulled proximally 2 ft of the iodoform gauze out I started to see cloudy material that may suggest benjy purulence. A/P: 59 yo M s/p I and D of the right knee prepatellar bursitis ?Admitted to Hospitalist (Appreciate assistance with this patient) ?given his ongoing pain, erythema and purulence from the wound it was decided that he would return to the operating room for an additional I and D ?DISPO: Pending however the patient will follow up with Orthopedics in 2 weeks The risks, benefits and alternatives of the procedure were discussed with the patient to include bleeding, infection, damage to surrounding structures, ongoing pain, ongoing stiffness, need for additional surgeries and anesthesia risks such as heart attack, stroke and . The patient understood these risks and want to move forward with the procedure. He was consented for a right knee incision and drainage. Oracio Vyas MD Orthopedics [phone] cell Time Spent With Patient Time with patient: 25 - 35 minutes
--- NOTE | 2025-03-19 12:44 | PC.NURSE ---
Pt to Or via bed by OR personnel with Chart and Nafcillin.
[2025-03-19] MEDS: LACTATED RINGERS 1,000 ML 42 ML IV (13:09)
--- NOTE | 2025-03-19 13:40 | CM.DPC ---
DCP Cont. Reviewed EMR and team rounds for pt's medical status and updates. Per Hospitalist, pt will need another 2-days of IV antibiotics, and then be converted to orals. Monitoring for final d/c needs.
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
--- NOTE | 2025-03-19 14:09 | SUR.OPER ---
Supine on padded OR bed, head on pillow, arms secured on padded arm boards at <90 degrees abduction, legs uncrossed, safety belt at abdomen, tape over blanket over left leg
--- NOTE | 2025-03-19 15:13 | PM.OP.1 ---
Operative Date/Time/Diagnoses Date of procedure: 03/19/25 Time of procedure: 14:00 Pre-op diagnosis: Right Knee septic prepatellar bursitis Post-op diagnosis: same Procedure & Clinicians Procedure: Right knee I&D Same procedure(s) as scheduled: Yes Surgeon: Oracio Vyas Assisted?: No Anesthesia Type: General Operative Notes Findings: Minimal purulence within the wound Closure Type: primary Specimen(s): other (Sent intra op cultures from the right knee) Applied: none Estimated Blood Loss (mL): 20 Blood products transfused: none Procedure in detail: Procedure Date: 03/19/25 Preoperative diagnosis: Right Knee prepatellar septic bursitis Post Op Diagnosis: Right knee prepatellar septic bursitis Procedure Performed: Right Knee incision and debridement/drainage Primary Surgeon: Oracio Vyas MD Secondary Surgeon: Keyanna Anesthesia Type: General EBL: 20cc Urine Output: NA Drains: No lines, drains or airways were recorded for this episode. Iodoform gauze was left as a wick outside of the anterior incision. Tourniquet: 0 minutes @ 250 mmHg Implants: None Indication For Surgery: History, physical exam and imaging consistent with right knee prepatellar septic bursitis. Risks include pain, bleeding, infection, damage to nearby structures and cartilage, lack of symptom relief, need for further surgery, knee stiffness, DVT, PE, myocardial infarction, stroke, and . The patient had a good understanding and all questions were answered. Written consent was obtained. Procedure in Detail: The patient was brought to the operating room and was placed in a supine position. They were given a preoperative antibiotic . A pneumatic tourniquet was applied to the proximal operative thigh over cast padding. The lower extremity was sterily prepped and draped in the normal sterile fashion. A surgical timeout was performed by the entire operating room team and all were in agreement. There was a iodoform wick that was left in place and only 1 nylon suture in the anterior incision. The nylon was removed and then the wick was pulled out. There was minimal purulence seen within the wick itself. No purulence was able to be expressed with massaging of the knee. Cultures were obtained. Using the present vertical anterior knee incision, we irrigated with 3 L of sterile normal saline. At that point we utilized a curette to debride the lining of the prepatellar space. No significant purulence was noted. We then irrigated for an additional 3 L of normal saline. At that point we then performed a 3 minute Betadine bath of the prepatellar space. And then ultimately we washed with an additional 3 L of sterile normal saline. All instruments were set aside on a dirty Ball stand. Gloves were changed. Iodoform gauze was loosely packed in the anterior space of the prepatellar space. Skin was closed loosely with 3-0 nylon. Local anesthetic was injected. The wound was dressed with Xeroform, 4x4s, ABD and an Melo wrap. The patient tolerated the procedure well and transferred to the recovery room in a stable condition. All counts were correct. Plan: Admit to medicine for continued IV antibiotics and observation. Leave Melo Wrap and dressings in place. Continue antibiotics. Obtain daily CBC, CRP and CMP. Advance diet as tolerated. Will see physical therapy and occupational therapy before they discharge. He will be made NPO at 2359 on 03/20/25 for potential repeat washout on 03/21/25. Oracio Vyas MD Orthopedic Surgeon Complications: none Post-operative Condition: stable Disposition: PACU
[2025-03-19] MEDS: INSULIN LISPRO 100 UNIT/ML 3ML VIAL 8 UNIT SUBCUT (16:55)
[2025-03-19] MEDS: INSULIN GLARGINE 100 UNIT/ML 3ML PEN 28 UNIT SUBCUT (20:06)
[2025-03-20] MEDS: NAFCILLIN 2 GM in SODIUM CHLORIDE 0.9% 100 ML IV ×6 (00:19→20:09)
[2025-03-20 05:59] LABS: Add Manual Diff / Slide Review NO; Hematocrit 30.9 % (41-53); Hemoglobin 10.3 g/dL (13.5-17.5); Lymphocytes Absolute Auto 1800 /uL (1100-4500); Mean Corpuscular HGB Conc 33.3 % (30-36); Mean Corpuscular Hemoglobin 34.1 PG (26-34); Mean Corpuscular Volume 102.5 fL (80-100); Platelet Count 273 X10^3/uL (150-400)
--- NOTE | 2025-03-20 06:57 | P.PN_ITS ---
Exam Vital Signs (past 8 hours): Oxygen Delivery Method Room Air Oxygen Flow Rate 0 Objective Labs 03/20/25 05:40 03/15/25 15:12 Labs: Laboratory Results - last 24 hr 03/19/25 03/19/25 03/19/25 07:26 10:55 16:00 WBC RBC Hgb Hct MCV MCH MCHC RDW Plt Count Neut % (Auto) Lymph % (Auto) [place] % (Auto) Eos % (Auto) Baso % (Auto) Neut # (Auto) Lymph # (Auto) [place] # (Auto) Eos # (Auto) Baso # (Auto) POC Whole Bld Glucose 157 H 146 H 172 H C-Reactive Protein 03/19/25 03/20/25 20:03 05:40 WBC 10.3 RBC 3.01 L Hgb 10.3 L Hct 30.9 L MCV 102.5 H MCH 34.1 H MCHC 33.3 RDW 17.0 H Plt Count 273 Neut % (Auto) 69.7 Lymph % (Auto) 17.3 L [place] % (Auto) 9.1 Eos % (Auto) 3.6 Baso % (Auto) 0.3 Neut # (Auto) 7200 H Lymph # (Auto) 1800 [place] # (Auto) 900 Eos # (Auto) 400 Baso # (Auto) 0 POC Whole Bld Glucose 146 H C-Reactive Protein 8.1 H PFSH Social History household members: spouse Smoking Status: Never smoker alcohol intake: current Assessment & Plan Post-op Postoperative Procedures: Procedures Operation Date: 03/17/25 17:30 Actual Procedure Side Surgeon p Incision and Drainage Knee Right Denis Gregory MD Operation Date: 03/19/25 12:45 Actual Procedure Side Surgeon p Incision and Drainage Knee Right Right Oracio Vyas MD Postoperative status narrative: ID: 59 yo M s/p I&D of the right knee prepatellar bursitis on 03/17/25 and 03/19/25 S: Pain controlled with pain medications. Denies F/C/NS/CP/SOB. Tolerating PO. Reports that the knee is feeling better. O: Mild erythema from the knee down the tibia. He reports that this is improved from preoperatively. Tenderness to palpation about the erythema and about the knee. Dressings were not removed. A/P: 59 yo M s/p I and D of the right knee prepatellar bursitis. Clinically improving. ?Admitted to Hospitalist (Appreciate assistance with this patient) ?NWB RLE - NPO at 2359 on 05/20/25 for possible OR on 03/22/25 -Repeat CBC and CRP in the morning ?DISPO: Pending however the patient will follow up with Orthopedics in 2 weeks The risks, benefits and alternatives of the procedure were discussed with the patient to include bleeding, infection, damage to surrounding structures, ongoing pain, ongoing stiffness, need for additional surgeries and anesthesia risks such as heart attack, stroke and . The patient understood these risks and want to move forward with the procedure. He was consented for a right knee incision and drainage. Oracio Vyas MD Orthopedics [phone] cell Time Spent With Patient Time with patient: 15-24 minutes
--- NOTE | 2025-03-20 07:22 | P.PN_ITS ---
Subjective Subjective Interval history: S: He was doing well, pain is controlled. He we will have re-evaluation of the site tomorrow. The packing will be removed. No other changes for today. O: NAD, alert and oriented. Fluent speech. Lungs are clear, normal rate and effort. Heart is regular, no murmur gallop or rub. Abdomen is soft, non distended. Extremities are free of edema. Right knee is wrapped. A/P: Septic prepatellar ileus cellulitis and bursitis: * Changed ceftriaxone to nafcillin which we will continue while inpatient and likely change to doxycycline upon discharge * Added rifampin for increased efficacy (sensitive) and we will continue after discharge* * OR for incision and drainage 03/17 (see operative report excerpt) * The wound was packed with iodoform gauze. 03/17 brought back to the operating room 03/19 for 2nd washout * Continue to monitor exam, white count, and CRP for evidence of improvement. White count de-escalated from 10.6-8.9 C-reactive protein de-escalated from 17.3-14.6 * * adjunctive rifampin increases antibiotic efficacy in group a streptococcal tissue infection: (Antimicrobial agents and chemotherapy 2020) * * rifampin as adjuvant treatment of Gram-positive bacterial infections a systemic review of comparative trials ( Journal of Clinical microbiology and Infectious Disease, 2007) * * role of rifampin for the treatment of bacterial infections other than Mycobacterium (J Infect 2017) Type 2 diabetes: * Sliding scale as needed for hyperglycemia PLAN: -continue IV antibiotics -no other changes today. DVT prophylaxis: * Defer to Orthopedic surgery * Currently aspirin 81 mg b.i.d. Code status: * Full code Exam Vital Signs (past 8 hours): Oxygen Delivery Method Room Air Oxygen Flow Rate 0 Objective Labs 03/20/25 05:40 03/15/25 15:12 Labs: Laboratory Results - last 24 hr 03/19/25 03/19/25 03/19/25 07:26 10:55 16:00 WBC RBC Hgb Hct MCV MCH MCHC RDW Plt Count Neut % (Auto) Lymph % (Auto) [place] % (Auto) Eos % (Auto) Baso % (Auto) Neut # (Auto) Lymph # (Auto) [place] # (Auto) Eos # (Auto) Baso # (Auto) POC Whole Bld Glucose 157 H 146 H 172 H C-Reactive Protein 03/19/25 03/20/25 20:03 05:40 WBC 10.3 RBC 3.01 L Hgb 10.3 L Hct 30.9 L MCV 102.5 H MCH 34.1 H MCHC 33.3 RDW 17.0 H Plt Count 273 Neut % (Auto) 69.7 Lymph % (Auto) 17.3 L [place] % (Auto) 9.1 Eos % (Auto) 3.6 Baso % (Auto) 0.3 Neut # (Auto) 7200 H Lymph # (Auto) 1800 [place] # (Auto) 900 Eos # (Auto) 400 Baso # (Auto) 0 POC Whole Bld Glucose 146 H C-Reactive Protein 8.1 H PFSH Social History household members: spouse Smoking Status: Never smoker alcohol intake: current Assessment & Plan Time-Based Coding :: [TOTAL MINUTES] spent with patient and on the chart (including review of chart, obtaining history, exam, reviewing outside data, placing orders, documenting exam and treatment plan, and counseling patient) on [DATE].
[2025-03-20] MEDS: ACETAMINOPHEN 325 MG TABLET 650 MG PO ×2 (07:33→16:23)
[2025-03-20 08:41] VITALS: BP 120/75; PULSE 80; RESP 15; TEMP 36.9; O2SAT 93
[2025-03-20] MEDS: ASPIRIN EC 81 MG TABLET PO ×2 (09:21→20:22)
[2025-03-20 15:36] LABS: Hemoglobin A1C% w Est Avg Glu 7.8 % (4.0-6.0)
[2025-03-20] MEDS: INSULIN LISPRO 100 UNIT/ML 3ML VIAL 8 UNIT SUBCUT (16:54)
[2025-03-20] MEDS: INSULIN LISPRO 100 UNIT/ML 3ML VIAL SUBCUT (16:55)
[2025-03-20 19:00] VITALS: BP 130/62; PULSE 84; RESP 16; TEMP 36.9; O2SAT 94
[2025-03-20 19:30] VITALS: BP 148/68; PULSE 78; RESP 16; TEMP 36.8; O2SAT 93
[2025-03-21] VITALS (13 sets, daily range): BP systolic 110–169; BP diastolic 66–92; PULSE 75–90; RESP 10–20; TEMP 36.6–37.5; O2SAT 91–99
[2025-03-21] MEDS: NAFCILLIN 2 GM in SODIUM CHLORIDE 0.9% 100 ML IV ×3 (00:41→08:47)
[2025-03-21 06:10] LABS: Hematocrit 30.0 % (41-53); Hemoglobin 10.0 g/dL (13.5-17.5); Mean Corpuscular HGB Conc 33.4 % (30-36); Mean Corpuscular Hemoglobin 34.1 PG (26-34); Mean Corpuscular Volume 101.9 fL (80-100); Platelet Count 289 X10^3/uL (150-400)
[2025-03-21 06:16] LABS: Add Manual Diff / Slide Review YES
[2025-03-21 06:46] LABS: Band Neutrophils Percent 11.0 % (3-7); Eosinophils Percent Manual 1.0 % (2-4); Lymphocytes Percent Manual 16.0 % (25-45); Metamyelocytes Percent 4.0 % (-0); Monocytes Percent Manual 5.0 % (2-11); Neutrophils Absolute Manual 9990 /uL (3000-5900); Segmented Neutrophils Percent 63.0 % (38-70); Total Cells Counted 100
[2025-03-21 06:47] LABS: Anisocytosis 1+; Macrocytosis 1+
[2025-03-21] MEDS: ACETAMINOPHEN 325 MG TABLET 650 MG PO ×3 (08:46→20:13)
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
[2025-03-21] MEDS: LACTATED RINGERS 1,000 ML 42 ML IV (11:45)
--- NOTE | 2025-03-21 12:14 | PC.NURSE ---
Patient is A&Ox4, VSS, BG 130 a.m. insulin held. Patient awaiting poss surgery this a.m. Physician arrived to bedside to evaluate patient and decision made to take patient to [facility]. At approximately 1130 a.m. Patient is transported via bed to PRE OP with RAMÍREZ Be.
--- NOTE | 2025-03-21 12:14 | PM.PREOP ---
Pre-operative Note COVID-19 COVID-19 status: Not tested Interval Note History & Physical reviewed/Exam performed by Physician: Yes Changes to H&P: Yes H&P completed within 30 days and has changed as indicated here:: UPon taking the dressing down this morning and the packing there was purulence eminating from the wound. We discussed the risks, benefits and alternatives of surgical and nonsurgical treatment. All questions were answered and we will proceed with I & D of right knee prepatellar bursa .
--- NOTE | 2025-03-21 14:56 | P.PN_ITS ---
Subjective Subjective Date Patient Seen: 03/21/25 Interval history: Postoperative status narrative: ID: 59 yo M s/p I&D of the right knee prepatellar bursitis on 03/17/25 and 03/19/25 and 03/21/25 S: Pain controlled with pain medications. He states that his knee feels better. He has been NPO. O: Tenderness to palpation about the prepatellar bursa. Dressings were removed. Purulent fluid was expressed from the knee. ROM of knee: 0-90 deg. A/P: 59 yo M s/p I and D of the right knee prepatellar bursitis. ?Admitted to Hospitalist (Appreciate assistance with this patient) ?NWB RLE -Repeat CBC and CRP in the morning - I took him to the OR and washed out his prepatellar bursa because of the above findings on exam. See operative note. ?DISPO: Pending however the patient will follow up with Orthopedics in 2 weeks Exam Vital Signs (past 8 hours): - 03/21/25 08:00 03/21/25 11:42 03/21/25 13:20 Temperature 99.3 F 98.5 F 99.2 F Pulse Rate 85 90 81 Respiratory Rate 19 16 15 Blood Pressure 133/86 131/75 147/70 H Pulse Oximetry 92 93 94 Oxygen Delivery Method Room Air Room Air Oxygen Flow Rate 0 5 03/21/25 13:25 03/21/25 13:30 03/21/25 13:35 Temperature 99.5 F Pulse Rate 79 82 76 Respiratory Rate 15 16 10 L Blood Pressure 149/71 H 142/67 H 139/66 Pulse Oximetry 99 94 93 Oxygen Delivery Method Simple Mask Simple Mask Simple Mask Oxygen Flow Rate 5 5 5 03/21/25 13:40 03/21/25 13:50 03/21/25 14:00 Temperature 98.8 F 97.8 F Pulse Rate 82 81 75 Respiratory Rate 20 15 16 Blood Pressure 151/72 H 169/79 H 128/83 Pulse Oximetry 98 96 94 Oxygen Delivery Method Room Air Room Air Oxygen Flow Rate 0 03/21/25 14:30 Temperature 98.4 F Pulse Rate 86 Respiratory Rate Blood Pressure 138/92 H Pulse Oximetry 93 Oxygen Delivery Method Oxygen Flow Rate 0 Oxygen Delivery Method Room Air Oxygen Flow Rate 0 Objective Labs 03/21/25 05:18 03/15/25 15:12 Labs: Laboratory Results - last 24 hr 03/20/25 03/20/25 03/20/25 05:40 16:48 19:35 WBC RBC Hgb Hct MCV MCH MCHC RDW Plt Count Neut % (Auto) Lymph % (Auto) [place] % (Auto) Eos % (Auto) Baso % (Auto) Lymph # (Auto) [place] # (Auto) Baso # (Auto) Total Counted Seg Neutrophils % Band Neutrophils % Lymphocytes % (Manual) Monocytes % (Manual) Eosinophils % (Manual) Metamyelocytes % Neutrophils # (Manual) RBC Morphology Anisocytosis Macrocytosis POC Whole Bld Glucose 147 H 97 Hemoglobin A1c 7.8 H C-Reactive Protein 03/21/25 03/21/25 03/21/25 05:18 08:09 11:50 WBC 13.5 H RBC 2.95 L Hgb 10.0 L Hct 30.0 L MCV 101.9 H MCH 34.1 H MCHC 33.4 RDW 17.1 H Plt Count 289 Neut % (Auto) Not Reportable Lymph % (Auto) Not Reportable [place] % (Auto) Not Reportable Eos % (Auto) Not Reportable Baso % (Auto) Not Reportable Lymph # (Auto) Not Reportable [place] # (Auto) Not Reportable Baso # (Auto) Not Reportable Total Counted 100 Seg Neutrophils % 63.0 Band Neutrophils % 11.0 H Lymphocytes % (Manual) 16.0 L Monocytes % (Manual) 5.0 Eosinophils % (Manual) 1.0 L Metamyelocytes % 4.0 H Neutrophils # (Manual) 9990 H RBC Morphology See below Anisocytosis 1+ H Macrocytosis 1+ H POC Whole Bld Glucose 130 H 100 H Hemoglobin A1c C-Reactive Protein 5.5 H 03/21/25 13:25 WBC RBC Hgb Hct MCV MCH MCHC RDW Plt Count Neut % (Auto) Lymph % (Auto) [place] % (Auto) Eos % (Auto) Baso % (Auto) Lymph # (Auto) [place] # (Auto) Baso # (Auto) Total Counted Seg Neutrophils % Band Neutrophils % Lymphocytes % (Manual) Monocytes % (Manual) Eosinophils % (Manual) Metamyelocytes % Neutrophils # (Manual) RBC Morphology Anisocytosis Macrocytosis POC Whole Bld Glucose 119 H Hemoglobin A1c C-Reactive Protein PFSH Social History household members: spouse Smoking Status: Never smoker alcohol intake: current Assessment & Plan Post-op Postoperative Procedures: Procedures Operation Date: 03/17/25 17:30 Actual Procedure Side Surgeon p Incision and Drainage Knee Right Denis Gregory MD Operation Date: 03/19/25 12:45 Actual Procedure Side Surgeon p Incision and Drainage Knee Right Right Oracio Vyas MD Operation Date: 03/21/25 13:15 Actual Procedure Side Surgeon p washout incision and drainage knee Right Aydee Cabrera, DO
--- NOTE | 2025-03-21 14:59 | P.OP_ITS ---
Operative Date/Time/Diagnoses Date of procedure: 03/21/25 Time of procedure: 12:30 Pre-op diagnosis: Right septic prepatellar bursitis Post-op diagnosis: same Procedure & Clinicians Procedure: Irrigation an debridement right prepatellar bursa Same procedure(s) as scheduled: Yes Surgeon: Aydee Cabrera Assisted?: Yes Inspector Government Property: Danette Jeffries Anesthesia Type: General Operative Notes Findings: see below Closure Type: primary Specimen(s): other (6 culture swabs were sent) Applied: none Estimated Blood Loss (mL): 50 Blood products transfused: none Procedure in detail: Procedure in Detail: The patient was brought to the operating room and was placed in a supine position. They were given a preoperative antibiotic . A pneumatic tourniquet was applied to the proximal operative thigh over cast padding. The lower extremity was sterily prepped and draped in the normal sterile fashion. A surgical timeout was performed by the entire operating room team and all were in agreement. There were 2 nylon suture in the anterior incision. The nylon was removed. Cultures were obtained. Using the present vertical anterior knee incision - I extended it 2 cm proximally, when I saw necrotic tissue proximally. All necrotic tissue was debrided. I irrigated with 3 L of sterile normal saline. At that point we utilized a curette to debride the lining of the prepatellar space. Bleeding and some purulence was noted. We then irrigated for an additional 3 L of normal saline. All instruments were set aside on a dirty Ball stand. Gloves were changed. Packing gauze was loosely packed in the anterior space of the prepatellar space. Skin was closed loosely with 0 prolene. Local anesthetic was injected. The wound was dressed with Xeroform, 4x4s, ABD and an Melo wrap. The patient tolerated the procedure well and transferred to the recovery room in a stable condition. All counts were correct. Plan: Admit to medicine for continued IV antibiotics and observation. Leave Melo Wrap and dressings in place. Continue antibiotics. Obtain daily CBC, CRP and CMP. Advance diet as tolerated. Complications: none Post-operative Condition: stable Disposition: PACU
[2025-03-21] MEDS: INSULIN LISPRO 100 UNIT/ML 3ML VIAL SUBCUT (17:45)
--- NOTE | 2025-03-21 18:59 | PC.NURSE ---
Pt had been NPO since after midnight, VSS, afebrile. MD at bedside informing patient of plan of I&D procedure today. BG this a.m. 130 and all insulin held. Patient is taken down to preop area this a.m. shortly after 10 a.m. via bed by Pre OP RN Denise. Patient returns from PACU at approximately 1400. He is A&Ox4. Tolerates late lunch and dinner well. He is able to ambulate and reports pain well controlled with PRN tylenol and oxycodone, frequent rounding.
[2025-03-21] MEDS: ASPIRIN EC 81 MG TABLET PO (20:13)
[2025-03-21] MEDS: INSULIN GLARGINE 100 UNIT/ML 3ML PEN 28 UNIT SUBCUT (20:14)
[2025-03-22] MEDS: ACETAMINOPHEN 325 MG TABLET 650 MG PO ×4 (01:54→20:27)
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
[2025-03-22 07:35] LABS: Hematocrit 28.0 % (41-53); Hemoglobin 9.4 g/dL (13.5-17.5); Mean Corpuscular HGB Conc 33.5 % (30-36); Mean Corpuscular Hemoglobin 34.0 PG (26-34); Mean Corpuscular Volume 101.5 fL (80-100); Platelet Count 316 X10^3/uL (150-400)
[2025-03-22 07:52] VITALS: BP 128/75; PULSE 77; RESP 12; TEMP 37.2; O2SAT 93
[2025-03-22 07:54] LABS: Add Manual Diff / Slide Review YES
[2025-03-22 08:04] LABS: Band Neutrophils Percent 15.0 % (3-7); Basophils Percent Manual 3.0 % (0-1); Eosinophils Percent Manual 2.0 % (2-4); Lymphocytes Percent Manual 15.0 % (25-45); Macrocytosis 1+; Metamyelocytes Percent 4.0 % (-0); Monocytes Percent Manual 8.0 % (2-11); Neutrophils Absolute Manual 9996 /uL (3000-5900); Segmented Neutrophils Percent 53.0 % (38-70); Total Cells Counted 100
[2025-03-22] MEDS: ASPIRIN EC 81 MG TABLET PO ×2 (09:11→20:27)
--- NOTE | 2025-03-22 12:50 | PM.PNPO.1 ---
Subjective Subjective Date Patient Seen: 03/22/25 Time Patient Seen: 11:35 Interval history: Date Patient Seen: 03/21/25 Interval history: Postoperative status narrative: ID: 59 yo M s/p I&D of the right knee prepatellar bursitis on 03/17/25 and 03/19/25 and 03/21/25 S: Pain controlled with pain medications. He states that his knee feels better. He has been NPO. O: Non Tenderness to palpation about the prepatellar bursa. Dressings were removed. No Purulent fluid was expressed from the knee. The packing was removed from the knee and there was no drainage. ROM of knee: 0-90 deg. A/P: 59 yo M s/p I and D of the right knee prepatellar bursitis. ?Admitted to Hospitalist (Appreciate assistance with this patient) ?NWB RLE -Repeat CBC and CRP in the morning -Recommend advancing diet and making NPO midnight tonight. As long as there is no purulence from the wound tomorrow he can be transitioned to oral antibiotics and discharged home. ?DISPO: Pending however the patient will follow up with Orthopedics 03/25/2025. Exam Vital Signs (past 8 hours): - 03/22/25 07:52 Temperature 98.9 F Pulse Rate 77 Respiratory Rate 12 Blood Pressure 128/75 Pulse Oximetry 93 Oxygen Flow Rate 0 Oxygen Delivery Method Room Air Oxygen Flow Rate 0 Objective Labs 03/22/25 06:28 03/15/25 15:12 Labs: Laboratory Results - last 24 hr 03/21/25 03/21/25 03/21/25 13:25 16:41 20:21 WBC RBC Hgb Hct MCV MCH MCHC RDW Plt Count Neut % (Auto) Lymph % (Auto) [place] % (Auto) Eos % (Auto) Baso % (Auto) Neut # (Auto) Lymph # (Auto) [place] # (Auto) Eos # (Auto) Baso # (Auto) Total Counted Seg Neutrophils % Band Neutrophils % Lymphocytes % (Manual) Monocytes % (Manual) Eosinophils % (Manual) Basophils % (Manual) Metamyelocytes % Neutrophils # (Manual) Platelet Estimate Plt Morphology Comment RBC Morphology Macrocytosis POC Whole Bld Glucose 119 H 209 H 168 H C-Reactive Protein 03/22/25 03/22/25 03/22/25 06:28 07:33 11:51 WBC 14.7 H RBC 2.76 L Hgb 9.4 L Hct 28.0 L MCV 101.5 H MCH 34.0 MCHC 33.5 RDW 17.0 H Plt Count 316 Neut % (Auto) Not Reportable Lymph % (Auto) Not Reportable [place] % (Auto) Not Reportable Eos % (Auto) Not Reportable Baso % (Auto) Not Reportable Neut # (Auto) Not Reportable Lymph # (Auto) Not Reportable [place] # (Auto) Not Reportable Eos # (Auto) Not Reportable Baso # (Auto) Not Reportable Total Counted 100 Seg Neutrophils % 53.0 Band Neutrophils % 15.0 H Lymphocytes % (Manual) 15.0 L Monocytes % (Manual) 8.0 Eosinophils % (Manual) 2.0 Basophils % (Manual) 3.0 H Metamyelocytes % 4.0 H Neutrophils # (Manual) 9996 H Platelet Estimate Adequate on smear Plt Morphology Comment RBC Morphology See below Macrocytosis 1+ H POC Whole Bld Glucose 119 H 104 H C-Reactive Protein 7.8 H PFSH Social History household members: spouse Smoking Status: Never smoker alcohol intake: current Assessment & Plan Post-op Postoperative Procedures: Procedures Operation Date: 03/17/25 17:30 Actual Procedure Side Surgeon p Incision and Drainage Knee Right Denis Gregory MD Operation Date: 03/19/25 12:45 Actual Procedure Side Surgeon p Incision and Drainage Knee Right Right Oracio Vyas MD Operation Date: 03/21/25 13:15 Actual Procedure Side Surgeon p washout incision and drainage knee Right Aydee Cabrera DO
[2025-03-22 16:18] LABS: HEMOLYSIS < 15 (0-50); Iron 50 ug/dL (49-181)
[2025-03-22] MEDS: INSULIN LISPRO 100 UNIT/ML 3ML VIAL SUBCUT (16:22)
[2025-03-22 16:29] LABS: Percent Iron Saturation 21 % (20-50); Total Iron Binding Capacity 234 ug/dL (261-462); Transferrin 183 mg/dL (206-381)
[2025-03-22 17:08] LABS: Vitamin B12 867 pg/mL (239-931)
[2025-03-22 19:45] VITALS: BP 136/67; PULSE 82; RESP 16; TEMP 36.5; O2SAT 98
[2025-03-23] MEDS: ACETAMINOPHEN 325 MG TABLET 650 MG PO ×2 (02:15→08:24)
[2025-03-23 07:25] LABS: Hematocrit 30.5 % (41-53); Hemoglobin 10.1 g/dL (13.5-17.5); Mean Corpuscular HGB Conc 33.1 % (30-36); Mean Corpuscular Hemoglobin 33.7 PG (26-34); Mean Corpuscular Volume 101.7 fL (80-100); Platelet Count 371 X10^3/uL (150-400)
[2025-03-23 07:26] LABS: Add Manual Diff / Slide Review YES
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
[2025-03-23 07:52] LABS: Band Neutrophils Percent 20.0 % (3-7); Basophils Percent Manual 1.0 % (0-1); Eosinophils Percent Manual 5.0 % (2-4); Lymphocytes Percent Manual 13.0 % (25-45); Metamyelocytes Percent 7.0 % (-0); Monocytes Percent Manual 5.0 % (2-11); Myelocytes Percent 5.0 % (-0); Neutrophils Absolute Manual 9600 /uL (3000-5900); Segmented Neutrophils Percent 44.0 % (38-70); Total Cells Counted 100
[2025-03-23 07:53] LABS: Macrocytosis 1+
[2025-03-23 08:10] VITALS: BP 133/76; PULSE 77; RESP 16; TEMP 37.2; O2SAT 97
[2025-03-23] MEDS: ASPIRIN EC 81 MG TABLET PO (08:27)
--- NOTE | 2025-03-23 10:15 | P.PN_ITS ---
Subjective Subjective Date Patient Seen: 03/23/25 Interval history: 59 year old male with a past medical history of diabetes mellitus type 2 who is status post incision and drainage of the right knee prepatellar bursa for septic bursitis on on 03/17/25 (Dr Gregory) and 03/19/25 (Dr Vyas) and 03/21/25 (Dr Cabrera) at [facility]. Subjective: He is resting comfortably in bed with his at bedside. He denies fever, chills, chest pain, dyspnea, nausea and emesis today. His pain is controlled with oral analgesics. He is feeling better. He has been up out of bed and ambulating in his room. Objective: WBC 15.0 up from 14.7 yesterday CRP 6.4 down from 7.8 yesterday Vital signs are stable Exam: Non tenderness to palpation about the prepatellar bursa. There is minimal erythema and no drainage. Iodoform packing removed, sanginous drainage evident with packing removal however there is no purulence. Flexion to 90 degrees actively with full extension to 0 degrees. Neurovascularly intact to the right lower extremity. Assessment/Plan: 59 year old male with a past medical history of diabetes mellitus type 2 who is status post incision and drainage of the right knee prepatellar bursa for septic bursitis on on 03/17/25 (Dr Gregory) and 03/19/25 (Dr Vyas) and 03/21/25 (Dr Cabrera). He has no pustular drainage or systemic symptoms of infection. The wound was packed with iodoform dressing today by Dr Cabrera (1 tail) and secured with 4x4 gauze and an romeo wrap. He has been transitioned to cefazolin as the hospital does not have nafcillin available. He is also receiving rifampin. - Admitted to Hospitalist (Appreciate assistance with this patient) - Weight bearing as tolerated right lower extremity - CBC and CRP daily while in hospital - Carb consistent diet, NPO status removed - Transition to oral antibiotics per primary team discretion - Follow up in the orthopedic clinic on 03/25/[address] Vyas and 03/27/[address] Cabrera. Recommend advancing diet and making NPO midnight tonight. - Plan for discharge home today on oral antibiotics - Pain control per primary team - Aspirin 81 mg twice daily for DVT prophylaxis Exam Vital Signs (past 8 hours): Oxygen Delivery Method Room Air Oxygen Flow Rate 0 Objective Labs 03/23/25 06:20 03/15/25 15:12 Labs: Laboratory Results - last 24 hr 03/22/25 03/22/25 03/22/25 06:28 11:51 16:15 WBC RBC Hgb Hct MCV MCH MCHC RDW Plt Count Neut % (Auto) Lymph % (Auto) [place] % (Auto) Eos % (Auto) Baso % (Auto) Lymph # (Auto) [place] # (Auto) Baso # (Auto) Total Counted Seg Neutrophils % Band Neutrophils % Lymphocytes % (Manual) Monocytes % (Manual) Eosinophils % (Manual) Basophils % (Manual) Metamyelocytes % Myelocytes % Neutrophils # (Manual) Platelet Estimate RBC Morphology Macrocytosis POC Whole Bld Glucose 104 H 179 H Iron 50 TIBC 234 L % Saturation 21 Transferrin 183 L C-Reactive Protein Vitamin B12 867 03/22/25 03/23/25 03/23/25 19:50 06:20 07:29 WBC 15.0 H RBC 3.00 L Hgb 10.1 L Hct 30.5 L MCV 101.7 H MCH 33.7 MCHC 33.1 RDW 17.2 H Plt Count 371 Neut % (Auto) Not Reportable Lymph % (Auto) Not Reportable [place] % (Auto) Not Reportable Eos % (Auto) Not Reportable Baso % (Auto) Not Reportable Lymph # (Auto) Not Reportable [place] # (Auto) Not Reportable Baso # (Auto) Not Reportable Total Counted 100 Seg Neutrophils % 44.0 Band Neutrophils % 20.0 H Lymphocytes % (Manual) 13.0 L Monocytes % (Manual) 5.0 Eosinophils % (Manual) 5.0 H Basophils % (Manual) 1.0 Metamyelocytes % 7.0 H Myelocytes % 5.0 H Neutrophils # (Manual) 9600 H Platelet Estimate Adequate on smear RBC Morphology See below Macrocytosis 1+ H POC Whole Bld Glucose 157 H 160 H Iron TIBC % Saturation Transferrin C-Reactive Protein 6.4 H Vitamin B12 PFSH Social History household members: spouse Smoking Status: Never smoker alcohol intake: current Assessment & Plan Time-Based Coding :: [TOTAL MINUTES] spent with patient and on the chart (including review of chart, obtaining history, exam, reviewing outside data, placing orders, documenting exam and treatment plan, and counseling patient) on [DATE]. PROFEE Chiropractic Doctor Document charge(s): Yes
--- NOTE | 2025-03-23 12:50 | PC.NURSE ---
1215: Discharge note: Discharge instructions given to patient and spouse, discussed importance of establishing care with a PMD, diabetic diet, and adherence to both PO antibiotic and Lantus SQ/HS. Educated on Lantus insulin SQ use, glucose monitoring and signs and symptoms of hypo and hyperglycemia. Ambulating independently in room, dressed self, voiding without any issues. Spouse and patient verbalized understanding of discharge instructions. Home via private vehicle, accompanied by spouse. Will molded goods spot picker Rx and Glucometer on way home at [employer].
--- NOTE | 2025-03-23 12:54 | CM.DPNOTE ---
DCP note SOFTWARE ENGINEERING SPECIALIST reviewed EMR per provider cleared to dc today home with OP f/u. SOFTWARE ENGINEERING SPECIALIST met with pt and spouse in room. agreeable to home. will f/u with new PCP appt at [facility]. SOFTWARE ENGINEERING SPECIALIST provided work excuse letter. RN working on getting order for new glucometer to take home. no other needs at this time. P: dc home on PO abx. will continue to follow as needed for any additional DCP needs KENDY Mejia
== END 2025-03-23 12:20 | disposition home or self-care (01) | DRG 464 ==
LOC: ED 18:09 → AC 18:21
PROVIDERS: Family Medicine; Hospitalist; Orthopaedic Surgery; Physician Assistant Surgical; Admitting Provider Internal Medicine; Emergency Provider Emergency Medicine; Referring Provider Emergency Medicine; Visit Provider Internal Medicine
PROC: 0M9N0ZZ Drainage of Right Knee Bursa and Ligament, Open Approach (ICD-10-PCS; principal; 2025-03-17 17:30)
PROC: 0MDN0ZZ Extraction of Right Knee Bursa and Ligament, Open Approach (ICD-10-PCS; principal; 2025-03-19 12:45)
PROC: 0JBN0ZZ Excision of Right Lower Leg Subcutaneous Tissue and Fascia, Open Approach (ICD-10-PCS; principal; 2025-03-21 13:15)
DX: M71.161 Other infective bursitis, right knee (principal); I96 Gangrene, not elsewhere classified; L03.115 Cellulitis of right lower limb; D53.9 Nutritional anemia, unspecified; E11.65 Type 2 diabetes mellitus with hyperglycemia; B95.61 Methicillin susceptible Staphylococcus aureus infection as the cause of diseases classified elsewhere; E66.811 Obesity, class 1; Z68.32 Body mass index [BMI] 32.0-32.9, adult
CPT/HCPCS: 10061; 11042; 20610; 36415; 80053; 82607; 82962; 83036; 83540; 83550; 83605; 85007; 85025; 85651; 86140; 87040; 87070; 87075; 87077; 87147; 87186; 87205; 89051; 96365; 96375; 99232; 99233; 99284; G0378; J0131; J0295; J0689; J0696; J1100; J1171; J1815; J1885; J2405; J2704; J2765; J3010; J3375; J7050; J7120